=== PATIENT | female | born 1975 | race Caucasian/White ===

== ENCOUNTER → 2016-05-06 | Outpatient (CLI) | payer OTHER ==
[~2016-05-06] VITALS: Ht 160 cm; Wt 68.6 kg
[~2016-05-06] MED LIST: ALEVE220 MG PO; CHANTIX1 MG PO; CYMBALTA30 MG PO; CYMBALTA60 MG PO; FISH OIL 1,001000 M2 PO; HYDROCODONE-APA1 TA1 PO; IBUPROFEN 600600 M1 PO; LIPITOR 20 MG T20 M1 PO; NORCO 10-325 T1 EACH PO; PERCOCET PO; PROZAC20 MG PO; TRAMADOL 50 MG50 MG PO; ZANAFLEX4 MG PO
--- NOTE | ~2016-05-06 | HPC ---
[facility] [place] [address] PAIN MANAGEMENT CONSULTATION Name: EDEN BLACKBURN Room #: REG [facility] Darcy#: [id number] Admission: 05/06/16 Attend Phys: Wes Lazcano DO Discharge: Date of : 71 Report #: [id number] THIS REPORT FOR: //name// CC: Ramesh Lazcano HISTORY OF PRESENT ILLNESS: The patient is a very pleasant 41-year-old female who was seen in consultation at the request of Megan Whitehead APRN, for evaluation of pain in the neck, left shoulder and arm. The patient notes she has had chronic neck pain over the years, but starting in January, following some acute muscle strain lifting, she developed radicular symptoms with paresthesia into the arm and middle finger. She has tried physical therapy; traction; trigger point injections; medication including naproxen sodium 220 mg 2 tablets b.i.d (which she is currently taking), tramadol with nominal efficacy, hydrocodone at bedtime with some efficacy; muscle relaxants to include Skelaxin and Flexeril, all causing sedation and gabapentin also causing sedation. She notes the pain is exacerbated with activity. Gets some relief with rest. She denies any specific myelopathic symptoms. Rates the pain anywhere from 4 to "10+" on a 0-10 visual analog scale. REVIEW OF SYSTEMS: Complete review of systems is attached to the chart and gone over with the patient. She is , seen in the company of her , who is supportive. She quit smoking in January, but has a 63-ykvo-mofe smoking history. Does not drink alcohol to excess. History of dyslipidemia, for which she takes atorvastatin. History of renal lithiasis. History of some chronic depression, for which she takes fluoxetine. She is currently taking Chantix for the aforementioned smoking cessation. She has an 11-year-old daughter and a 10-year-old twin step children. 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 She has continued to work despite pain, but she has lost about 2 weeks intermittently secondary to chronic pain issues. Pain impact score is quite high, averaging 60 out of 70 points. PHYSICAL EXAMINATION: GENERAL: Reveals a 7-sfkf-4-inch, 140-pound female. BMI is 26.8 kilograms per meter squared. VITAL SIGNS: Blood pressure 121/79, pulse 82 and respirations 16. NEUROLOGIC: Cranial nerves 2-12 are grossly intact. HEENT: Pupils equal and reactive to light and accommodation. Extraocular muscles are intact. MUSCULOSKELETAL: Cervical range of motion is modestly limited with positive Lhermitte. She has some diffuse tenderness in the upper musculature of splenius capitis and trapezius. No discrete trigger points are noted. Upper extremity strength is generally symmetric. Modest decreased left hand grasp. Left [address] [address] PAIN MANAGEMENT CONSULTATION Name: EDEN BLACKBURN Room #: REG [facility] Darcy#: [id number] Admission: 05/06/16 Attend Phys: Wes Lazcano DO Discharge: Date of : 71 Report #: [id number] brachioradialis reflex is diminished, compared to the right. Muscles appear grossly intact. SKIN/INTEGUMENT: Otherwise intact. HEART: Regular and rhythmical, without murmur. LUNGS: Clear to auscultation. ABDOMEN: Unremarkable. EXTREMITIES: Gait is tandem. Lower extremity strength is preserved. Lumbar flexion is good. DIAGNOSTIC STUDIES: Include MRI of the cervical spine from 03/09/2016, noting some central canal stenosis at C6-C7, canal narrowed to approximately 8 mm due to posterior disk osteophyte complex. C5-C6 similarly shows narrowing down to about 8-9 mm. C4-C5 notes some mild bilateral neural foraminal narrowing, canal narrowed to about 9 mm. ASSESSMENT: Symptomatic cervical radiculopathy. RECOMMENDATIONS: 1. Continue naproxen sodium 220 mg 2 tablets b.i.d. 2. I have taken the liberty of renewing hydrocodone prescription, 10/325 one tablet at bedtime for about 15 nights. Hopefully, intervention today will decrease the pain generator and we can rotate to tramadol 50 mg 1-2 tablets at bedtime. I have taken the liberty of writing for 45 of these tablets, to be released in 10 days. 3. Cervical epidural injection under fluoroscopy. 4. Followup in 3-4 weeks for reevaluation. ASSESSMENT: Symptomatic cervical radiculopathy. PROCEDURE: Cervical epidural steroid injection under fluoroscopy. PROCEDURE NOTE: After written and informed consent was obtained including risk of dural puncture, spinal cord trauma, paralysis and increased pain, the patient was taken to the fluoroscopy suite and placed in the prone position, with appropriate abdominal bolstering, neck was flexed, palms under the thighs. Skin was prepped with ChloraPrep. Sterile draping was applied. Skin wheal with 1% Xylocaine was raised. A 22-gauge 3-1/2 inch epidural Tuohy needle was placed via a midline approach at the C7-T1 interspace, advanced under biplanar fluoroscopy using continuous loss of resistance. With appropriate loss of resistance at the expected depth on lateral view, the glass loss of resistance syringe was disconnected. A low volume extension tubing was connected to the needle and a 5 mL syringe. Negative aspiration for cerebrospinal fluid or blood was noted. A 1 mL of Omnipaque was injected which showed spread within the epidural space on biplanar fluoroscopy. This was followed with 80 mg of triamcinolone plus 1 mL of 1.5% preservative Xylocaine. Needle was withdrawn to the interspinous ligament, 0.5 mL of Xylocaine was used to flush the needle. [facility] [address] [place] [address] PAIN MANAGEMENT CONSULTATION Name: EDEN BLACKBURN Room #: REG CLI [facility]#: [id number] Admission: 05/06/16 Attend Phys: Wes Lazcano DO Discharge: Date of : 71 Report #: [id number] The needle was then completely withdrawn. The area was cleansed. Band-Aid was applied. The patient was allowed to move off the procedure table and ambulated to the recovery room, monitored for an appropriate period of time, discharged in good and stable condition. Thank you for allowing me to participate in the patient's care. I will keep you abreast of her progress. <ELECTRONICALLY SIGNED> By: Wes Lazcano DO 05/10/16 0917 [id number] Wes Lazcano DO /nt
[2016-05-06 10:51] VITALS: BP 121/79
== END | disposition home or self-care (01) ==
LOC: PAIN 07:17
DX: M54.12 Radiculopathy, cervical region (principal); G89.29 Other chronic pain; Z87.891 Personal history of nicotine dependence; Z90.710 Acquired absence of both cervix and uterus

== ENCOUNTER → 2016-05-17 | Outpatient (CLI) | payer OTHER ==
[~2016-05-17] VITALS: Ht 160 cm; Wt 67.1 kg
--- NOTE | ~2016-05-17 | HPC ---
[facility] [place] [address] PAIN MANAGEMENT CONSULTATION Name: EDEN BLACKBURN Room #: REG [facility] Darcy#: [id number] Admission: 05/17/16 Attend Phys: Wes Lazcano DO Discharge: Date of : 71 Report #: [id number] THIS REPORT FOR: //name// CC: Ramesh Whitehaed [employer] Wes Lazcano HISTORY: The patient pulse is a 41-year-old female, prior seen in the pain clinic 05/06/2016 with diagnosis of symptomatic cervical radiculopathy, given a single epidural injection at that time. The patient returns to the pain clinic today. We had a prolonged visit from 09:53 to 10:20, greater than 50% of this 25+ minute visit was spent counseling the patient. She notes she had significant near 100% relief for 2 days, but symptoms recurred. She is describing specifically pain in the left side of her neck that is a burning dysesthesia. She has some pain radiating up into the neck and aching sensation in the splenius capitis muscles on both sides. She does have some pain going into the left trapezius and deltoid. She describes an aching sensation in the triceps and elbow. She has tingling in the left index, long, ring and fifth fingers. She has some burning and tingling in the left shoulder blade. She states tramadol "doesn't work" and did not, in fact, get the prescription I gave her filled. She does take hydrocodone 10/325 one at bedtime to help with pain after work. She rates the pain a 6/10 presently. She notes constant, burning, shooting, aching, sharp and stabbing pain. She notes really pretty much any activity exacerbates the pain. Reviewing how this started, the patient notes she was lying down on the couch with her . Her started to get up and she moved, turned in awkward fashion, "pulling" the neck muscle. She has had symptoms since. Ultimately with ongoing pain in the neck, left shoulder and arm, she proceeded to get an MRI of the cervical spine, which was accomplished 03/09/2016. I renewed this patient's consultation and reviewed it again today. C4-C5 is fairly unremarkable. There is a little more right and left facet arthropathy, fairly nominal with mild bilateral stenosis in canal at 9 mm. C5-C6 notes some mild bilateral foraminal narrowing. Canal is possibly narrow at 8-9 mm. Primary pathology appears to be C6-C7 and again, this is fairly nominal as well, posterior disk osteophyte complex with central canal measuring 8 mm due to some uncovertebral hypertrophy and facet arthropathy resulting in mild bilateral foraminal stenosis. C7-T1 is fairly unremarkable. PHYSICAL EXAMINATION: GENERAL: Reveals a 41-year-old female. BMI is 26.2 kilograms per meter squared. VITAL SIGNS: Blood pressure is modestly elevated at 135/95, pulse 80 and respirations are 14. MUSCULOSKELETAL: Cervical range of motion is full. I do not detect significant [address] [address] PAIN MANAGEMENT CONSULTATION Name: EDEN BLACKBURN Room #: REG CLI Darcy#: [id number] Admission: 05/17/16 Attend Phys: Wes Lazcano, Discharge: Date of : 71 Report #: [id number] neural tensioning symptoms, negative Lhermitte's. Deep tendon reflexes are generally preserved for the biceps, triceps and brachioradialis and symmetric. Cranial 2-12 are otherwise intact. Hand grasp is symmetric. She does have some pain with resistance to the left triceps and deltoid resistance, though muscle strength is about 4/5. She does have remarkably positive left Tinel's over the ulnar aspect. No trigger points are noted in the splenius capitis, trapezius or upper thoracic paravertebral muscles, though the patient does note she has some subjective spasm and pain in these areas. ASSESSMENT: Symptomatic cervical radiculopathy, good initial relief following the cervical epidural injection with symptoms recurring; left carpal tunnel syndrome (ulnar) distribution. Component of myofascial pain. RECOMMENDATIONS: After a long discussion with the patient, I have elected to do the followin. Continue Naproxen 220 mg 2 tablets b.i.d. 2. The patient has a few more days of hydrocodone 10/325 to take after work. I have renewed her prescription for hydrocodone, decreasing the dose to 7.5 mg, dispensing 45 tablets, max of 2 tablets a day, every 8 hours as needed for significant pain. 3. We will start the patient on a muscle relaxer as she appears to have some component of myofascial and musculoskeletal pain, tizanidine 4 mg to take half to one tablet 3 times a day, one tablet after work and at bedtime, dispensing 100 tablets with one refill. 4. We will get an EMG of the left upper extremity. We will follow up after the diagnostic study, consideration for repeat cervical epidural injection at that time. Thank you for allowing me to participate in the patient's care. I will keep you abreast of her progress. The patient was discharged in good and stable condition, after a moderately prolonged visit spent reviewing history, interval changes, diagnostic studies and answering questions. <ELECTRONICALLY SIGNED> By: Wes Lazcano DO 05/19/16 0729 1025 [id number] Wes Lazcano DO /nt
[2016-05-17 09:51] VITALS: BP 135/95
== END ==
LOC: PAIN 07:02
DX: M54.12 Radiculopathy, cervical region (principal); M79.1 Myalgia; Z87.891 Personal history of nicotine dependence

== ENCOUNTER → 2016-05-24 | Outpatient (CLI) | payer OTHER ==
[~2016-05-24] VITALS: Ht 160 cm; Wt 67.8 kg
--- NOTE | ~2016-05-24 | HPC ---
[facility] [place] [address] PAIN MANAGEMENT CONSULTATION Name: EDEN BLACKBURN Room #: REG [facility] Taver[facility]#: [id number] Admission: 05/24/16 Attend Phys: Wes Lazcano, Discharge: Date of : 71 Report #: [id number] THIS REPORT FOR: //name// CC: Megan Lazcano The patient is a 41-year-old female previously seen in the pain clinic 05/17/2016. The patient was initially seen 05/06/2016, diagnosed with symptomatic cervical radiculopathy, given a single epidural injection at that time, returned to the pain clinic noting 100% relief for 2 days and symptoms recurred to baseline. Concerned for ongoing pain, neck, left shoulder and burning dysesthesia, I ordered an EMG. The patient returns to pain clinic today. We had a prolonged visit from 11:15-11:45. Greater than 50% of this 25+ minute visit was spent counseling the patient. EMG notes diagnostic study done 05/20/[address] Wade Mitchell with left median motor and sensory studies normal, left ulnar motor and sensory studies normal, radial sensory studies normal, EMG of the left upper extremity paraspinal muscles normal. Impression was normal study, no electrophysiologic evidence of any median, ulnar neuropathy or cervical radiculopathy on the left. The patient returns to pain clinic today noting subjective pain in neck, left shoulder, going into the deltoid, triceps and biceps on the left side, some paresthesia going into her index, middle and third finger. She has tingling in the shoulder blade. She is incidentally complaining of some pain in the left low back with occasional radiation down to her foot. She states tramadol did not help. She discontinued that medication. She describes pain as constant, burning, shooting, aching, sharp, stabbing, tingling. Rates pain subjectively 6 on a 0-10 visual analog scale. Physical exam shows 41-year-old female. BMI is 26.5 kilograms per meter squared. Vital signs stable as noted in the EMR. Cervical range of motion is full. Upper extremity strength is preserved. Cervical flexion and extension exacerbate neck pain, but no true radicular symptoms are noted. The patient complains of subjective crepitance though none is audible. Upper extremity strength is generally symmetric. Hand grasp is adequate. Deep tendon reflexes of the biceps, triceps, brachioradialis are symmetric. Tinel's is negative. Rises from chair easily. Gait is tandem. Passive rotation of the hip is unremarkable. Zoie test exacerbate some pain into the hip, though no true SI pain is noted. Lower extremity strength is symmetric. Straight leg raise is negative. Patellar and Achilles reflexes are preserved. DIAGNOSTIC STUDIES: EMG as noted above, we reviewed her cervical spine MRI from 03/09/2016. C4-C5 notes some small narrowing to about 9 mm, mild bilateral [address] [address] PAIN MANAGEMENT CONSULTATION Name: EDEN BLACKBURN Room #: REG [facility]#: [id number] Admission: 05/24/16 Attend Phys: Wes Lazcano DO Discharge: Date of : 71 Report #: [id number] stenosis. C5-C6 notes mild bilateral stenosis, canal narrowed to 8-9 mm. C6-C7 notes posterior disk osteophyte complex seen, central canal narrowed to 8 mm of diameter. Facet uncovertebral hypertrophy. ASSESSMENT: Musculoskeletal pain primarily affecting neck, upper back, subjective radicular component with introspect a fairly benign MRI, negative EMG and physical findings unremarkable at this time. RECOMMENDATION: As this looks more like myofascial type pain, we have elected to try and rotate to an appropriate selective serotonin reuptake/norepinephrine reuptake agent. Savella and Cymbalta both meet this criteria and are indicated for myofascial pain. Currently, the patient takes Lexapro 40 mg a day, she has been on this for about 11 years, but had been at 20 mg only, recently went to 40 mg. She has some 20 mg tablets at home. RECOMMENDATIONS: We will have the patient drop back to 20 mg of Lexapro daily for about 10-12 days, start Cymbalta 30 mg a day concurrent. In 10-12 days when she runs out of her 20 mg Lexapro tablets, I will double her Cymbalta 30 mg tablets to total of 60 mg a day. I have taken the liberty of writing for 1 prescription for 60 tablets with Cymbalta 30 mg and a prescription to be released in 2-3 weeks for Cymbalta 60 mg, dispensed 30 tablets. I would like the patient back in about 4 weeks after stabilizing on 60 mg of Cymbalta. Suggest she try and use the tizanidine more for breakthrough pain than hydrocodone. I asked her to drop hydrocodone down to half a tablet p.r.n. I gave her 45 tablets last visit. She still has approximately 40 tablets left. ASSESSMENT: Primarily myofascial pain, component of cervical radiculopathy and axial back pain. Medication changes as noted above. The patient discharged in good and stable condition after a 25+ minute visit was spent with the patient. Follow up in about 6 weeks. <ELECTRONICALLY SIGNED> By: Wes Lazcano DO 05/28/16 0811 [id number] eWs Lazcano DO /rdew
[2016-05-24 10:59] VITALS: BP 127/85
== END | disposition home or self-care (01) ==
LOC: PAIN 07:03
DX: M54.12 Radiculopathy, cervical region (principal); M79.1 Myalgia